=== PATIENT | female | born 1985 | race Two or more races ===

== ENCOUNTER 2019-01-10 19:01 | Emergency (ER) | payer OTHER ==
[~2019-01-10] VITALS: Ht 157.5 cm; Wt 91.0 kg
[2019-01-10 21:35] VITALS: BP 128/80
== END 2019-01-10 23:00 | disposition home or self-care (01) ==
LOC: ER 19:01
DX: O99.89 Other specified diseases and conditions complicating pregnancy, childbirth and the puerperium (principal); B07.0 Plantar wart; O26.891 Other specified pregnancy related conditions, first trimester; R03.0 Elevated blood-pressure reading, without diagnosis of hypertension; Z3A.01 Less than 8 weeks gestation of pregnancy
CPT/HCPCS: 99281